=== PATIENT | female | born 1995 | race Caucasian/White ===

== ENCOUNTER 2020-03-26 05:55 | Inpatient (IN) | payer OTHER ==
[~2020-03-26] VITALS: Ht 157.5 cm; Wt 68.2 kg
[2020-03-26] VITALS (14 sets, daily range): BP systolic 99–146; BP diastolic 56–85
--- NOTE | 2020-03-26 05:39 | NUR ---
JAYLIN BANGURA presented to unit via wheelchair from ED, accompanied by and staff, with c/o CONTRACTIONS. JAYLIN BANGURA weighed, gowned, voided, and to bed. EFHM and TOCO applied, VS taken. JAYLIN BANGURA oriented to bed controls, call light, TV, heat, and A/C controls.
[~2020-03-26 05:55] MED LIST: AMPICILLIN FOR IV USE 2,000 MG VIAL ONE; D5 LR IV SOLUTION 1,000 ML IV ONE; WATER (STERILE) FOR INJECTION 20 ML ONE
[2020-03-26] MEDS ORDERED: OXYTOCIN PRE-MIX DRIP 500 ML IV ONE ×2 (06:08→08:15)
[2020-03-26] MEDS ORDERED: OXYTOCIN (PITOCIN) 10 UNIT/ML VIAL ONE (06:20)
[2020-03-26 06:40] LABS: BASOPHILS % (AUTO) 0 % (0-10); EOSINOPHILS # (AUTO) 0.1 10^3/uL (0.0-0.3); EOSINOPHILS % (AUTO) 1 % (0-10); HEMATOCRIT 36 % (35-52); HEMOGLOBIN 12.7 G/DL (11.5-16.0); LYMPHOCYTES # (AUTO) 2.6 X 10^3 (1.0-4.0); LYMPHOCYTES % (AUTO) 27 % (12-44); MEAN CORPUSCULAR HEMOGLOBIN 31 PG (25-34); MEAN CORPUSCULAR HGB CONC 35 G/DL (32-36); MEAN CORPUSCULAR VOLUME 89 FL (80-99); MEAN PLATELET VOLUME 9.6 FL (7.4-10.4); MONOCYTES # (AUTO) 0.8 X 10^3 (0.0-1.0); MONOCYTES % (AUTO) 9 % (0-12); NEUTROPHILS # (AUTO) 6.1 X 10^3 (1.8-7.8); NEUTROPHILS % (AUTO) 63 % (42-75); PLATELET COUNT 222 10^3/uL (130-400); RED CELL DISTRIBUTION WIDTH 12.8 % (10.0-14.5); WHITE BLOOD COUNT 9.6 10^3/uL (4.3-11.0)
--- NOTE | 2020-03-26 06:41 | History & Physical-OB/GYN ---
History of Present Illness History of Present Illness Reason for visit/HPI Ms. Pratt, A0 at 38 2/7 weeks, presents to the hospital with the onset of labor. Date of Admission March 26, 2020 Date Seen by a Provider: Mar 26, 2020 Time Seen by a Provider: 06:10 I consulted on this patient on 03/26/20 06:35 Attending Physician Esau Poole DO Admitting Physician Esau Poole DO Consult Allergies and Home Medications Patient Home Medication List Home Medication List Reviewed: Yes Past Avjhghk-Xvebmj-Vseebm Hx Patient Social History Marrital Status: Number of Children: 2 Number of living children: 2 Alcohol Use: Denies Use Recreational Drug Use: No Smoking Status: Never a Smoker Recent Foreign Travel: No Contact w/other who traveled: No Seasonal Allergies Seasonal Allergies: No Surgeries No Respiratory No Cardiovascular No Neurological No Reproductive System : No Expected Date of Delivery: Apr 08, 2020 Hx : 3 Hx Para: 2 Hx Total # of Abortions (Spona: 0 Hx Reproductive Disorders: No Sexually Transmitted Disease: No HIV/AIDS: No Genitourinary No Gastrointestinal No Musculoskeletal No Endocrine History of Endocrine Disorders: No HEENT History of HEENT Disorders: No Cancer No Psychosocial History of Psychiatric Problem: No Integumentary History of Skin or Integumenta: No Blood Transfusions History of Blood Disorders: No Review of Systems Constitutional: see HPI Physical Exam Physical Exam Vital Signs Capillary Refill : General Appearance: No Apparent Distress, WD/WN Respiratory: Chest Non Tender, Lungs Clear, Normal Breath Sounds Cardiovascular: Regular Rate, Rhythm, No Edema, No Murmur, Normal Peripheral Pulses Abdominal: normal bowel sounds, non tender Labia: WNL Vagina: WNL Cervix: WNL Cervix OS: open (Completely dilated) Uterus: WNL, Enlarged (Gravid) Ovaries: WNL Extremity: Normal Inspection, Normal Range of Motion, Non Tender Assessment/Plan Assessment and Plan Assessment: Intrauterine at 38 2/7 weeks 2. Unknown GBS status Plan: Ampicillin for GBS prophylaxis. Expectant management. Admission Diagnosis Admission Status: Inpatient Order (span 2 midnights) Reason for Inpatient Admission: In active labor ESAU POOLE DO Mar 26, 2020 06:41
--- NOTE | 2020-03-26 06:47 | OB Labor & Delivery Record ---
Vag Delivery Note Vag Delivery Note Date of Delivery: 03/26/20 Preoperative Diagnosis: Savanna Pratt is a (24 /Para 3 / 2,Gestational Age (38 2/7 wks)with [Unknown GBS Status and the onset of labor] Postoperative Diagnosis: Same Surgeon: ADDIE MUNOZ Diploma Pharmacy Technician: [None] Anesthesia: [None] Delivery Type: [Normal Spontaneous Vaginal Delivery] Findings: [A healthy viable male in the Occiput Anterior Position] Viable [Male] infant, apgars [], weight [] Lacerations:None Intact placenta with 3 vessel cord. No nuchal cord, body cord or shoulder dystocia Estimated Blood Loss: [300] ml Complications: None Condition: Stable Description of Procedure: The patient is a 24 year old female who presented [with the onset of labor. On arrival she was 8 cm dilated]. She was admitted and informed consent was obtained. Her labor course was remarkable for [unknown GBS status] She progressed to complete dilatation and began to push. She was then set up for delivery. The 's head was delivered atraumatically in the [OA] position. The shoulders and remainder of the 's body were then delivered without difficulty. Upon delivery, the head was held below the level of the perineum and the mouth and nares were bulb suctioned. The cord was doubly clamped and cut and the was handed off to the pediatric staff where NRP protocol was followed. An intact placenta with 3-vessel cord delivered via Riley and there was found to be minimal bleeding.~ Vigorous fundal massage was performed and the fundus was found to be firm. IV oxytocin was given and discontinued per patient request. Examination of the vagina and perineum reveale d no laceration. Following the repair, sponge, instrument and needle counts were correct. Mom and baby were both in stable condition in the labor suite. Vitals - Labs Labs Laboratory Tests 03/26/20 06:00: ADDIE MUNOZ DO Mar 26, 2020 06:47
--- NOTE | 2020-03-26 07:15 | NUR ---
Fundus boggy U/2 with moderate rubra lochia noted. Fundal massage performed to firm the uterus. Pericare completed and pads changed. Discussed medications to assist with bleeding with patient. Patient adamant about not wanting IV's running. Will discuss options with Dr. Poole. Encouraged patient that if her bleeding continued at this rate that I would highly recommend allowing for the administration of uterotonics.
--- NOTE | 2020-03-26 07:28 | NUR ---
Dr. Poole updated on patient's status. New orders received.
[2020-03-26] MEDS ORDERED: ACETAMINOPHEN 500 MG TAB (TYLENOL) PO PRN (07:45)
[2020-03-26] MEDS ORDERED: MISOPROSTOL 200 MCG (CYTOTEC) TABLET PR PRN (07:45)
--- NOTE | 2020-03-26 07:45 | NUR ---
Fundus boggy U/2 with moderate rubra lochia noted. Several quarter sized clots expressed. Again discussed with patient the importance of uterotonics and patient agrees to allow IV Pitocin to infuse.
[2020-03-26] MEDS ORDERED: IBUPROFEN 800 MG (MOTRIN) TAB PO SCH (08:00)
--- NOTE | 2020-03-26 08:00 | NUR ---
IV pitocin bolusing per order. Fundus firm U/2 with small rubra lochia, no clots. Patient c/o increased abdominal cramping. Warm pack placed to abdomen.
--- NOTE | 2020-03-26 09:05 | NUR ---
Fundus firm U/2 with small rubra lochia noted. No clots. Pericare completed.
[2020-03-26] MEDS ORDERED: BENZOCAINE/MENTHOL (DERMOPLAST) 60 ML CAN TP ONE (10:12)
--- NOTE | 2020-03-26 10:30 | NUR ---
Patient assisted up to restroom. +void noted. Pericare reviewed. Clean pad and panties applied. Patient to wheelchair and taken to Nursery to see . Patient updated on plan of care and questions answered. Addendum: 03/26/20 at 1046 by JORGE BRAN RN Fundus firm U/2 with scant rubra lochia noted.
[2020-03-26] MEDS ORDERED: PREN1TAB79 PO (11:19)
[2020-03-26] MEDS ORDERED: OMEG1CAP PO (11:19)
[2020-03-26] MEDS ORDERED: DOCU-143 PO (11:27)
[2020-03-26] MEDS ORDERED: IBUP-1780 PO (11:27)
--- NOTE | 2020-03-26 11:30 | NUR ---
Patient back to room via wheelchair following NICU transport team departure. Plan of care reviewed with patient and her . Verbalization returned.
--- NOTE | 2020-03-26 13:29 | NUR ---
Discharge instructions and medications reviewed with patient both written and verbally. Patient verbalizes understanding and questions answered. Saline lock DC'd, tip intact.
--- NOTE | 2020-03-26 13:40 | NUR ---
Patient up to restroom to void. + void. Fundus firm U/2 with scant rubra lochia noted. Pericare completed and clean pad and panties applied.
--- NOTE | 2020-03-26 14:28 | NUR ---
Patient discharged at this time via wheelchair and accompanied down to awaiting private vehicle by this RN. No signs or symptoms of distress noted.
--- NOTE | 2020-03-27 07:50 | Discharge Summary ---
Diagnosis/Chief Complaint Date of Admission Mar 26, 2020 at 06:35 Date of Discharge Mar 26, 2020 at 14:28 Discharge Date: Mar 26, 2020 Admission Diagnosis Admission Diagnosis Intrauterine at 38 2/7 weeks 2. Unknown GBS Status Discharge Diagnosis Intrauterine at 38 2/7 weeks--delivered 2. Unknown GBS Status Reason Hospital Visit Ms. Pratt, A0 at 38 2/7 weeks, presents to the hospital with the onset of labor. Discharge Summary Hospital Course Was the Problem List Reviewed?: Yes Hospital Course Ms. Pratt, A0 at 38 2/7 weeks, presented to the hospital with the onset of contractions. Upon admission was evaluated and found to be 8 cm dilated. She spontaneously ruptured her membranes, progressed to complete. She delivered a healthy, viable without complications. Her was transferred secondary to RDS. Consequently, I discharged Ms. Pratt immediately to attend to her . She will follow up with me in 6 weeks unless she encounters problems. Ibuprofen and Colace were called into her pharmacy. Labs Laboratory Tests 03/26/20 06:00: Red Blood Count 4.10L 03/26/20 08:54: Procedures None. Discharge Physical Examination Allergies: Coded Allergies: No Known Drug Allergies (Unverified , 03/26/20) Vitals & I&Os Vital Signs Date Time Temp Pulse Resp B/P (MAP) Pulse Ox O2 Delivery O2 Flow Rate FiO2 03/26/20 13:20 37.0 64 16 106/73 (84) 97 Room Air General Appearance: Alert, Oriented X3, Cooperative HEENT: Atraumatic Respiratory: Clear to Auscultation, Normal Air Movement Cardiovascular: Regular Rate, No Murmurs Abdominal: Normal Bowel Sounds, Soft Extremities: No Clubbing, No Cyanosis Skin: No Rashes Neuro: Normal Gait, Normal Speech Psych/Mental Status: Mental Status NL Discharge Home Medications Reviewed and agree with Discharge Medication list on patient's Discharge Instruction sheet Instructions to Patient/Family Please see electronic discharge instructions given to patient. Clinical Quality Measures DVT/VTE Risk/Contraindication: Risk Factor Score Per Nursin RFS Level Per Nursing on Admit: 1=Low/No VTE PPX ADDIE MUNOZ DO Mar 27, 2020 07:50
== END 2020-03-26 14:28 | disposition home or self-care (01) | DRG 807 ==
LOC: WSo 05:55 → LDRP 05:55 → WSo 06:35 → LDRP 06:35
PROVIDERS: ADMIT Obstetrics & Gynecology; ATTEND Obstetrics & Gynecology
PROC: 10E0XZZ Delivery of Products of Conception, External Approach (ICD-10-PCS; principal; 2020-03-26)
DX: O80 Encounter for full-term uncomplicated delivery (principal); Z37.0 Single live birth; Z3A.38 38 weeks gestation of pregnancy
CPT/HCPCS: 36415; 85025; 86850; 86900; 86901; 87635; 99212

== ENCOUNTER → 2020-06-26 | Outpatient (CLI) | payer OTHER, MEDICAID ==
[~2020-06-26] MED LIST changes: -AMPICILLIN FOR IV USE 2,000 MG VIAL ONE; -D5 LR IV SOLUTION 1,000 ML IV ONE; +DOCU-143 PO; +IBUP-1780 PO; +OMEG1CAP PO; +PREN1TAB79 PO; -WATER (STERILE) FOR INJECTION 20 ML ONE
--- NOTE | 2020-06-26 11:00 | Diagnostic Imaging Report ---
INDICATION: Pain. 3 views were obtained. FINDINGS: The alignment is normal. There is some soft tissue thickening about the PIP joint of the 4th finger. There is also questionable small radiopaque foreign body. There is no fracture or dislocation. IMPRESSION: Small radiopaque foreign body and soft tissue thickening about the PIP joint of the right 4th finger. Dictated by: Dictated on workstation # [id number]
--- NOTE | 2020-06-26 11:01 | Diagnostic Imaging Report ---
INDICATION: Wrist pain. 2 views were obtained. FINDINGS: The alignment is normal. No fracture or dislocation. Soft tissues are unremarkable. IMPRESSION: No acute fracture or dislocation. Dictated by: Dictated on workstation # [id number]
== END ==
LOC: RAD FS 09:22
PROVIDERS: ATTEND Nurse Practitioner
DX: M65.341 Trigger finger, right ring finger (principal); M25.531 Pain in right wrist; W45.8XXA Other foreign body or object entering through skin, initial encounter
CPT/HCPCS: 73100; 73140

== ENCOUNTER → 2021-04-25 | Outpatient (CLI) | payer OTHER, MEDICAID ==
[2021-04-25 16:45] LABS: BASOPHILS % (AUTO) 0 % (0-10); EOSINOPHILS % (AUTO) 1 % (0-10); HEMATOCRIT 34 % (35-52); HEMOGLOBIN 11.7 g/dL (11.5-16.0); LYMPHOCYTES % (AUTO) 28 % (12-44); MEAN CORPUSCULAR HEMOGLOBIN 30 pg (25-34); MEAN CORPUSCULAR HGB CONC 34 g/dL (32-36); MEAN CORPUSCULAR VOLUME 88 fL (80-99); MEAN PLATELET VOLUME 9.3 fL (9.0-12.2); MONOCYTES % (AUTO) 9 % (0-12); NEUTROPHILS % (AUTO) 61 % (42-75); PLATELET COUNT 393 10^3/uL (130-400); WHITE BLOOD COUNT 7.1 10^3/uL (4.3-11.0)
[2021-04-25 16:46] LABS: EOSINOPHILS # (AUTO) 0.1 10^3/uL (0.0-0.3); MONOCYTES # (AUTO) 0.6 X 10^3 (0.0-1.0); NEUTROPHILS # (AUTO) 4.3 X 10^3 (1.8-7.8)
== END ==
LOC: LAB FS 15:46
PROVIDERS: ATTEND Registered Nurse Emergency
DX: O26.891 Other specified pregnancy related conditions, first trimester (principal); R89.1 Abnormal level of hormones in specimens from other organs, systems and tissues; Z3A.00 Weeks of gestation of pregnancy not specified
CPT/HCPCS: 36415; 84144; 85025; 86703; 86762; 86780; 86850; 86900; 86901; 87088; 87340

== ENCOUNTER → 2021-06-25 | Outpatient (CLI) | payer MEDICAID | LOC: LAB FS 13:56 | PROVIDERS: ATTEND Family Medicine | DX: Z34.91 Encounter for supervision of normal pregnancy, unspecified, first trimester (principal); Z3A.00 Weeks of gestation of pregnancy not specified | CPT/HCPCS: 36415; 82105; 82677; 84702; 86336 ==

== ENCOUNTER → 2021-08-29 | Outpatient (CLI) | payer OTHER, MEDICAID ==
[2021-08-29 14:09] LABS: HEMATOCRIT 36 % (35-52); HEMOGLOBIN 12.1 g/dL (11.5-16.0); MEAN CORPUSCULAR HEMOGLOBIN 30 pg (25-34); MEAN CORPUSCULAR HGB CONC 33 g/dL (32-36); MEAN CORPUSCULAR VOLUME 89 fL (80-99); MEAN PLATELET VOLUME 9.2 fL (9.0-12.2); PLATELET COUNT 255 10^3/uL (130-400); WHITE BLOOD COUNT 11.6 10^3/uL (4.3-11.0)
== END ==
LOC: LAB FS 13:28
PROVIDERS: ATTEND Family Medicine
DX: Z34.92 Encounter for supervision of normal pregnancy, unspecified, second trimester (principal)
CPT/HCPCS: 36415; 82950; 85027; 86780

== ENCOUNTER → 2021-10-11 | Outpatient (CLI) | payer OTHER, MEDICAID | LOC: LAB 09:25 | PROVIDERS: ATTEND Family Medicine | DX: Z34.83 Encounter for supervision of other normal pregnancy, third trimester (principal); Z3A.34 34 weeks gestation of pregnancy | CPT/HCPCS: 87077; 87081 ==

== ENCOUNTER 2021-10-21 09:32 | Inpatient (IN) | payer OTHER, MEDICAID ==
[~2021-10-21] VITALS: Ht 157.5 cm; Wt 67.8 kg
[2021-10-21] VITALS (14 sets, daily range): BP systolic 120–169; BP diastolic 68–90
[2021-10-21] MEDS ORDERED: OXYTOCIN PRE-MIX DRIP 0 ML IV ONE (10:33)
--- NOTE | 2021-10-21 11:26 | History & Physical-OB ---
OB - Chief Complaint & HPI Date/Time Date of Admission: Date of Admission: Oct 21, 2021 at 10:08 Time Seen by a Provider: 10:30 Chief Complaint/History OB-Reason for Admission/Chief: Onset of Labor Hx Para: 2101 Expected Date of Delivery: Nov 20, 2021 Other reason for admission: labor Allergies and Home Medications Allergies Coded Allergies: No Known Drug Allergies (Unverified , 03/26/20) Patient Home Medication List Home Medication List Reviewed: Yes Docusate Sodium (Colace) 100 Mg Capsule, 100 MG PO BID Prescribed by: JORGE BRAN on 03/26/20 112 Ibuprofen (Ibuprofen) 800 Mg Tablet, 800 MG PO Q6H Prescribed by: JORGE BRAN on 03/26/20 1127 [place]-3 Fatty Acids/Fish Oil (Fish Oil Concentrate Softgel) 1 Each Capsule, 3 EACH PO DAILY, (Reported) Entered as Reported by: JORGE BRAN on 03/26/20 1119 Vit W-Ca,Fe,FA(<1 mg) ( Vitamins) 1 Each Tablet, 3 EACH PO DAILY, (Reported) Entered as Reported by: JORGE BRAN on 03/26/20 1119 OB - History Hx of Present Care: Yes Ultrasounds: Normal mid trimester US Obstetrical Complications: None Medical Complications: None Information Pre-Hospital Medication Admins: PNV Induced Hypertension: No Maternal Gestational Diabetes: No Hemorrhage: No Obstetrical History Hx # Term Pregnancies: 2 Hx # Pregnancies: 1 Number of Living Children: 3 Hx Multiple Gestation: No Hx Ectopic : No Hx Complication: Yes Hx Induced Hypertens: No Hx Maternal Gestational Diabet: No Hx Hemorrhage: No Delivery History Hx Dystocia: No Hx Forceps Assisted Delivery: No Hx Vacuum Extraction Assisted: No Hx Placenta Abnormality: No Hx Distress: No Hx Large For Gestational Age I: No Hx Small for Gestational Age I: No Hx Section: No Hx Vaginal Delivery Post C-Sec: No Hx Blood Disorders: No Adverse Rxn to Tranfusion: No Patient Past Medical History None Social History/Family History Alcohol Use: Denies Use Recreational Drug Use: No Smoking Cessation: Never smoker OB - Admission Exam Physical Exam HEENT: NCAT Lungs: Clear Abdomen: Gravid Extremities: Normal Cervical Dilatation: 10cm Effacement: 100% Station: +3 Membranes: Intact Amniotic Fluid: Clear Heart Rate: 130's Accelerations: Accelerations Present Decelerations: Variable Decelerations Short Term Variability: Present Correction Variability: Average (6-25) Contractions on Admission: < 5 Minutes Apart Date/Time Contractions Began;: 0500 OB - Assessment/Plan/Diagnosis Assessment Assessment: active labor, other Admission Dx Active Labor at 35.5wks Admission Status: Inpatient Order (span 2 midnights) Reason for Inpatient Admission: Labor & Delivery Plan Plan: Expectant Management Discharge Diagnosis Diagnosis: Multip, delivers viable female Copy Copies To 1: OUMOU HANNA MD, KARI E MD Oct 21, 2021 11:26
--- NOTE | 2021-10-21 11:34 | OB Labor & Delivery Record ---
Vag Delivery Note Vag Delivery Note Date of Delivery: 10/21/21 Preoperative Diagnosis: Savanna Pratt is a (25 /Para 11/2101 ,Gestational Age (wks)with [] Postoperative Diagnosis: Same Surgeon: SHIRLEY REBOLLEDO Morning Babysitter: [] Anesthesia: [none ] Delivery Type: [] Findings: [] Viable Female , apgars 5/8/9, weight 5# 14oz Lacerations: none Intact placenta with circumvallate appearance with 3 vessel cord. nuchal cord x 2, body cord or shoulder dystocia x1 Estimated Blood Loss: [400] ml Complications: None Condition: Stable Description of Procedure: The patient is a 25 year old female who presented [to labor and delivery in active labor, completely dilated with bulging membranes]. She was admitted and informed consent was obtained. Her labor course was remarkable for variable decelerations with contractions. Moderate variability with normal baseline between contractions. She progressed to complete dilatation and began to push. She was then set up for delivery. The infant's head was delivered atraumatically in the INDIRA position. Loose nuchal x2 was reduced and with next maternal push had no expulsion of the . She was placed in Katt and counterclockwise pressure was placed on the right shoulder reducing the dystocia and the remainder of the baby delivered within 30 seconds of the head. Upon delivery, the head was held below the level of the perineum and the mouth and nares were bulb suctioned. The cord was doubly clamped and cut and the was handed off to the pediatric staff. An intact placenta with 3-vessel cord delivered via Riley and there was found to be minimal bleeding.~ Vigorous fundal massage was performed and the fundus was found to be firm. The patient refused oxytocin and demonstrated understanding of recommendation. She stated she would prefer Pitocin over blood transfusion however counseled would be behind the curve and bleeding if waited until the blood transfusion was necessary to begin therapeutic medications for hemorrhage. As the placenta delivered easily with firm uterine tone following will hold Pitocin per patient request with frequent fundal evaluations for bleeding and maintain IV access. Examination of the vagina and perineum revealed no lacerations. Following the repair, sponge, instrument and needle counts were correct. Mom and baby were both in stable condition in the labor suite. The patient was known group B strep positive however unable to administer antibiotics prior to delivery due to the short period of time she was on the unit prior to delivery. SHIRLEY REBOLLEDO MD Oct 21, 2021 11:34
[2021-10-21] MEDS ORDERED: IBUPROFEN 600 MG (MOTRIN) TAB PO ONE (11:44)
[2021-10-21] MEDS ORDERED: MEASLES,MUMPS,RUBELLA 1 EA INJ SQ ONE (11:45)
[2021-10-21] MEDS ORDERED: TETANUS,DIPTH,PERTUSS P/F (BOOSTRIX) 0.5 ML VIAL IM ONE (11:45)
[2021-10-21] MEDS ORDERED: LACTATED RINGERS 1,000 ML IV SCH (11:45)
[2021-10-21] MEDS ORDERED: WITCH HAZEL(TUCKS) 40 EA JAR TOP PRN (11:45)
[2021-10-21] MEDS ORDERED: BENZOCAINE/MENTHOL (DERMOPLAST) 56 ML CAN TP PRN (11:45)
[2021-10-21 11:46] LABS: BASOPHILS % (AUTO) 0 % (0-10); EOSINOPHILS # (AUTO) 0.1 10^3/uL (0.0-0.3); EOSINOPHILS % (AUTO) 1 % (0-10); HEMATOCRIT 38 % (35-52); HEMOGLOBIN 12.9 g/dL (11.5-16.0); LYMPHOCYTES # (AUTO) 1.7 10^3/uL (1.0-4.0); LYMPHOCYTES % (AUTO) 15 % (12-44); MEAN CORPUSCULAR HEMOGLOBIN 31 pg (25-34); MEAN CORPUSCULAR HGB CONC 34 g/dL (32-36); MEAN CORPUSCULAR VOLUME 89 fL (80-99); MEAN PLATELET VOLUME 9.2 fL (9.0-12.2); MONOCYTES # (AUTO) 0.7 10^3/uL (0.0-1.0); MONOCYTES % (AUTO) 6 % (0-12); NEUTROPHILS # (AUTO) 8.4 10^3/uL (1.8-7.8); NEUTROPHILS % (AUTO) 76 % (42-75); PLATELET COUNT 220 10^3/uL (130-400); WHITE BLOOD COUNT 11.1 10^3/uL (4.3-11.0)
[2021-10-21] MEDS: IBUPROFEN 600 MG (MOTRIN) TAB PO SCH ×2 (11:48→18:18)
[2021-10-21] MEDS ORDERED: CATHETER FLUSH 10 ML SYR IV SCH ×2 (14:00)
[2021-10-21] MEDS: ACETAMINOPHEN 500 MG TAB (TYLENOL) PO SCH ×2 (14:24→22:48)
[2021-10-21] MEDS: DOCUSATE SODIUM 100 MG (COLACE) CAP PO SCH (22:48)
[2021-10-22] MEDS: IBUPROFEN 600 MG (MOTRIN) TAB PO SCH ×4 (01:01→21:27)
[2021-10-22 04:10] VITALS: BP 108/67
[2021-10-22] MEDS: ACETAMINOPHEN 500 MG TAB (TYLENOL) PO SCH ×2 (04:20→11:43)
[2021-10-22 07:25] VITALS: BP 135/80
[2021-10-22] MEDS: PRENATAL VITAMIN 1 EA TAB PO SCH (07:25)
--- NOTE | 2021-10-22 08:26 | Progress Note ---
Standard Progress Note Progress Notes/Assess & Plan Date Seen by a Provider: Oct 22, 2021 Time Seen by a Provider: 08:20 Progress/Assessment & Plan S: pain wellcontrolled with tylenol/ibuprofen. Lochia is reduced. on RA in nursery, latching well. No c/o O: VSS, AF Gen A&O x 3, NAD Chest: nonlabored Ext: nt A: s/p PPD#1 doing well P: cont routine PP care, support anticipate dismissal to room/home tomorrow depending on status declines Rxs for meds at this time SHIRLEY REBOLLEDO MD Oct 22, 2021 08:26
[2021-10-22] MEDS ORDERED: IBUP-844 PO (08:28)
[2021-10-22] MEDS ORDERED: ACET-93 PO (08:28)
[2021-10-22] MEDS: DOCUSATE SODIUM 100 MG (COLACE) CAP PO SCH ×2 (08:29→21:27)
[2021-10-22 15:45] VITALS: BP 131/85
[2021-10-22 21:26] VITALS: BP 101/63
[2021-10-23] MEDS: ACETAMINOPHEN 500 MG TAB (TYLENOL) PO SCH ×3 (00:49→11:48)
[2021-10-23 03:54] VITALS: BP 111/70
[2021-10-23] MEDS: IBUPROFEN 600 MG (MOTRIN) TAB PO SCH ×2 (03:54→10:01)
[2021-10-23 08:00] VITALS: BP 116/70
[2021-10-23] MEDS: DOCUSATE SODIUM 100 MG (COLACE) CAP PO SCH (08:04)
[2021-10-23] MEDS: PRENATAL VITAMIN 1 EA TAB PO SCH (08:04)
--- NOTE | 2021-10-23 08:32 | Discharge Inst-Women's Service ---
Discharge Inst-Women's Serv Depart Medication/Instructions New, Converted or Re-Newed RX: Transmitted to Pharmacy Consults/Follow Up Additional Follow Up: Yes (6wk appt) Activity Activity: Activity as Tolerated Driving Instructions: No Driving for 1 Week NO SMOKING: NO SMOKING Nothing Inside Vagina: No Douching, No [place], No Tampons Diet Discharge Diet: No Restrictions Symptoms to Report to : Bleeding Excessive, Pain Increased, Fever Over 101 Degrees F, Vaginal Bleeding Increase For Any Problems or Questions: Contact Your Physician LEILANI SEALS APRN Oct 23, 2021 08:32
--- NOTE | 2021-10-23 08:43 | Postpartum Progress Note ---
Note Note Day # 2 Subjective: Patient is without complaints. Ambulating, voiding. Tolerating a regular diet without nausea or vomiting. Normal lochia. Pain is well controlled with oral pain medications. Breast feeding. Objective: Physical Exam: General - Alert and oriented, no apparent distress Abdomen - Soft, appropriately tender to palpation, non-distended, fundus firm at umbilicus Extremities - no edema, negative Tamara's bilaterally Assessment: Post- day # 2, status post vaginal delivery. Recovering well, hemodynamically stable Acute blood loss anemia Plan: Routine care. Encourage breast feeding. Encourage ambulation. Ferrous sulfate supplementation. Plan for discharge today. Patient may room-in/board while baby's DC is pending. Vitals - Labs Vital Signs - I&O Vital Signs Date Time Temp Pulse Resp B/P (MAP) Pulse Ox O2 Delivery O2 Flow Rate FiO2 10/23/21 03:54 36.8 62 20 111/70 (84) 97 Room Air 10/22/21 21:26 37.0 60 20 101/63 (76) 97 Room Air 10/22/21 15:45 36.4 67 20 131/85 (100) Room Air LEILANI SEALS APRN Oct 23, 2021 08:43
[2021-10-23] MEDS ORDERED: DOCU100C37 PO (10:53)
[2021-10-23 12:00] VITALS: BP 116/70
== END 2021-10-23 12:00 | disposition home or self-care (01) | DRG 806 ==
LOC: WSo 09:32 → LDRP 09:34 → WSo 10:08 → LDRP 12:41
PROVIDERS: ADMIT Obstetrics & Gynecology; ATTEND Obstetrics & Gynecology
PROC: 10E0XZZ Delivery of Products of Conception, External Approach (ICD-10-PCS; principal; 2021-10-21)
DX: O60.14X0 Preterm labor third trimester with preterm delivery third trimester, not applicable or unspecified (principal); D62 Acute posthemorrhagic anemia; Z37.0 Single live birth; Z3A.35 35 weeks gestation of pregnancy; O99.824 Streptococcus B carrier state complicating childbirth; O69.81X0 Labor and delivery complicated by cord around neck, without compression, not applicable or unspecified; O69.2XX0 Labor and delivery complicated by other cord entanglement, with compression, not applicable or unspecified; O66.0 Obstructed labor due to shoulder dystocia; O90.81 Anemia of the puerperium; O76 Abnormality in fetal heart rate and rhythm complicating labor and delivery
CPT/HCPCS: 36415; 85025; 86850; 86900; 86901; 99212